=== PATIENT | male | born 1965 | race Hispanic/Latino ===

== ENCOUNTER 2022-03-17 05:52 | Day surgery (SDC) | payer OTHER ==
[2022-03-15 15:37] LABS: Absolute Lymphocytes (CBC) 1.3 K/uL (0.7-4.9); Hematocrit 47.2 % (39.6-49.0); Lymphocytes % 28.9 % (15.3-44.8); MCV 94.7 fL (80-100); MPV 7.6 fL (7.6-11.3); RBC Red Blood Cell Count 4.99 M/uL (4.33-5.43)
--- NOTE | 2022-03-15 15:43 | RAD REPORT ---
EXAM DESCRIPTION: Yousif Whittington (2 Views)03/15/2022 3:27 pm CLINICAL HISTORY: Preop/hypertension COMPARISON: None FINDINGS: The lungs appear clear of acute infiltrate. The heart is normal size IMPRESSION: No acute abnormalities displayed
--- NOTE | 2022-03-16 15:16 | EKG ---
Test Date: 2022-03-15 Test Time: 15:14:25 Economics Professor: ANNA MEASUREMENT RESULTS: Intervals: Rate: 64 PA: 140 QRSD: 100 QT: 400 QTc: 412 [place]: P: 41 PA: 140 QRS: 32 T: -4 INTERPRETIVE STATEMENTS: Normal sinus rhythm T wave abnormality, consider inferior ischemia Abnormal ECG No previous ECG available for comparison Electronically Signed On 03-16-22 15:15:01 SENIOR MARKETING MANAGER by Solomon Mann
[2022-03-17] MEDS ORDERED: Ringers Lactate 1,000 ML IV ONE (06:12)
[2022-03-17] MEDS ORDERED: propofoL 200 MG/20 ML VIAL IV ONE (07:08)
[2022-03-17] MEDS ORDERED: FENTANYL CITR 100 MCG/2 ML ONE (07:08)
[2022-03-17] MEDS ORDERED: MIDAZOLAM HCL 2 MG/2 ML INJ ONE (07:08)
[2022-03-17] MEDS ORDERED: ONDANSETRON 4 MG/2 ML VIAL ONE (07:11)
[2022-03-17] MEDS ORDERED: LIDOCAINE 2% MPF 5 ML VIAL ONE (07:11)
[2022-03-17] MEDS ORDERED: CEFAZOLIN SODIUM 1 GM/VIAL ONE (08:10)
[2022-03-17] MEDS ORDERED: dexAMETHasone 10 MG/ML VIAL ONE (08:15)
[2022-03-17] MEDS ORDERED: Mastisol Adhesive Liq ONE ×2 (09:01→09:37)
--- NOTE | 2022-03-17 09:11 | P.BOP ---
Preoperative diagnosis: tender enlarging upper and lower extremities subQ masses Postoperative diagnosis: same Primary procedure: Excisional biopsy tender upper and lower extremities subQ masses 2x2cm Secondary procedure: x 22 Healthcare Market Consultant: ANITA WILLS Estimated blood loss: <10cc Specimen: masses Findings: 22 masses, see location on attached document Anesthesia: General Complications: None Transferred to: Recovery Room Condition: Good
[2022-03-17] MEDS ORDERED: KETOROLAC 30 MG/ML INJ ONE (09:12)
[2022-03-17 10:02] VITALS: O2SAT 100
[2022-03-17 11:40] VITALS: BP 155/94; TEMP 96.7
--- NOTE | 2022-03-17 13:38 | DS ---
Date of Discharge: 03/17/2022 Diagnosis: Enlarging tender subcutaneous masses. Disposition: Home. Activity: As tolerated. No heavy lifting. Plan: Follow up in my office in 1 week. Call for appointment at [phone]. Keep area dry for 48 coco rs, then may shower. Keep the Steri-Strips intact. IZABELLA/SHONA Voice ID: [id number] Report ID: [id number]
--- NOTE | 2022-03-17 14:42 | OP ---
Date of Procedure: 03/17/2022 Surgeon: Washington Barcenas MD Preoperative Diagnosis: Multiple upper extremity and lower extremity subcutaneous tender masses. Postoperative Diagnosis: Multiple upper extremity and lower extremity subcutaneous tender masses. Procedures: Excisional biopsy of subcutaneous mass of; 1.Left thigh anterior medial. 2.Left thigh anterior lateral. 3.Posterior left thigh. 4.Left groin. 5.Right anterior thigh. 6.Right shoulder. 7.Right anterior medial arm. 8.Right lateral anterior arm. 9.Right proximal lateral forearm. 10.Right anterior distal arm. 11.Right posterior upper arm. 12.Right lateral elbow. 13.Right wrist. 14.Right distal upper arm. 15.Left distal forearm. 16.Left distal lateral forearm. 17.Left lateral forearm. 18.Left medial forearm. 19.Left proximal upper arm. 20.Left posterior forearm. 21.Left medial upper arm. 22.Left proximal forearm. This lesion varies in size from 2 x 2 to 2 x 3 cm. Complications: None. Estimated Blood Loss: Less than 10 cc. Indication: This is the case of a 56-year-old, with multiple masses on his body, but he has some spe cific ones that are increasing in size, changing in pain and discomfort and they are growing fast in the other ones. He wants those removed. The other ones he can observe. He is concerned about obvio usly neoplasia with few coworkers at work having some issues with cancer. He marked each 1 for us in the holding room. He understands the benefits, alternatives, and risks of excisional biopsy, which include, but not limited to infection, bleeding, damage to adjacent structures, anesthesia complicati on, recurrence, OH, and even . He also understands this may not relieve any symptoms. He might need more than one surgical intervention. He understood, signed a consent. Procedure In Detail: The patient was brought to the operating room, placed in supine position. Anes thesia was done without complication. Bilateral upper extremities, groin and bilateral lower extremi ties were prepped and draped in the usual sterile fashion. Each procedure was done individually, but using same technique which consisted of sharp incision of the skin and dissection of the subcutaneou s tissue. We were trying to help and remove this with blunt dissection to make sure we have the enti re lesion out. Then, the area was irrigated, hemostasis was obtained, and then closed with 3-0 chrom ic and Steri-Strip. We did that 22 times using the same technique. At the end of the case, the spon ge count, instrument counts correct. The patient tolerated the procedure well. The patient sent to recovery in stable condition. IZABELLA/SHONA Voice ID: [id number] Report ID: [id number]
== END 2022-03-17 11:02 | disposition home or self-care (01) ==
LOC: OR 05:52
PROVIDERS: ATTEND Surgery
PROC: 0JBF0ZZ Excision of Left Upper Arm Subcutaneous Tissue and Fascia, Open Approach (ICD-10-PCS; 2022-03-17)
PROC: 0JBH0ZZ Excision of Left Lower Arm Subcutaneous Tissue and Fascia, Open Approach (ICD-10-PCS; 2022-03-17)
PROC: 0JBH0ZZ Excision of Left Lower Arm Subcutaneous Tissue and Fascia, Open Approach (ICD-10-PCS; 2022-03-17)
PROC: 0JBF0ZZ Excision of Left Upper Arm Subcutaneous Tissue and Fascia, Open Approach (ICD-10-PCS; 2022-03-17)
PROC: 0JBM0ZZ Excision of Left Upper Leg Subcutaneous Tissue and Fascia, Open Approach (ICD-10-PCS; 2022-03-17)
PROC: 0JBC0ZZ Excision of Pelvic Region Subcutaneous Tissue and Fascia, Open Approach (ICD-10-PCS; 2022-03-17)
PROC: 0JBL0ZZ Excision of Right Upper Leg Subcutaneous Tissue and Fascia, Open Approach (ICD-10-PCS; 2022-03-17)
PROC: 0JBG0ZZ Excision of Right Lower Arm Subcutaneous Tissue and Fascia, Open Approach (ICD-10-PCS; 2022-03-17)
PROC: 0JBD0ZZ Excision of Right Upper Arm Subcutaneous Tissue and Fascia, Open Approach (ICD-10-PCS; 2022-03-17)
PROC: 0JBF0ZZ Excision of Left Upper Arm Subcutaneous Tissue and Fascia, Open Approach (ICD-10-PCS; 2022-03-17)
PROC: 0JBD0ZZ Excision of Right Upper Arm Subcutaneous Tissue and Fascia, Open Approach (ICD-10-PCS; 2022-03-17)
PROC: 0JBG0ZZ Excision of Right Lower Arm Subcutaneous Tissue and Fascia, Open Approach (ICD-10-PCS; 2022-03-17)
PROC: 0JBH0ZZ Excision of Left Lower Arm Subcutaneous Tissue and Fascia, Open Approach (ICD-10-PCS; principal; 2022-03-17 07:30)
DX: D17.24 Benign lipomatous neoplasm of skin and subcutaneous tissue of left leg (principal); D17.23 Benign lipomatous neoplasm of skin and subcutaneous tissue of right leg; D17.22 Benign lipomatous neoplasm of skin and subcutaneous tissue of left arm; D17.21 Benign lipomatous neoplasm of skin and subcutaneous tissue of right arm; D17.1 Benign lipomatous neoplasm of skin and subcutaneous tissue of trunk
CPT/HCPCS: 11403 ×7; 11402 ×14; 11401; 11404; 93005; 85025; 80048; 36415; 88304; 71046; J2704; J2001; J2250; J3010; J1100; J7120; J2405; J0690